=== PATIENT | female | born 1990 | race Caucasian/White ===

== ENCOUNTER 2021-08-25 17:23 | Emergency (ER) | payer OTHER, SELFPAY ==
--- NOTE | ~2021-08-25 | US_ITS ---
EXAMINATION: US ABDOMEN LIMITED CLINICAL INFORMATION: Gallbladder only as per ordering request. Concern for acute cholecystitis.. COMPARISON: None TECHNIQUE: Real-time imaging of the gallbladder only. FINDINGS: GALLBLADDER: There are multiple small gallstones lying dependently in the gallbladder. No gallbladder wall thickening or pericholecystic fluid. Positive ultrasound Escalera's sign. COMMON BILE DUCT: CBD is mildly dilated measuring 0.7 cm in diameter. US/US abdomen limited IMPRESSION: 1. Cholelithiasis. No acute change of gallbladder wall. Positive ultrasound Escalera's sign. 2. Mildly dilated CBD measuring 0.7 cm. HIDA scan and MRCP may be helpful for further assessment.
[2021-08-25 18:45] VITALS: BP 126/75; PULSE 73; RESP 16; TEMP 36.4; O2SAT 98; BMI 26.5
[2021-08-25 19:11] LABS: MANUAL DIFF FLAG NO
[2021-08-25 19:12] LABS: Basophils Percent Auto 0.5 % (0-2); Eosinophils Absolute Auto 0.1 X10*3/uL (0.0-0.4); Eosinophils Percent Auto 1.1 % (0-4); Hematocrit 38.5 % (37.0-47.0); Hemoglobin 12.6 g/dl (12.0-16.0); Imm Gran Abs Auto 0.02 X10*3/uL (0.00-0.03); Imm Gran Pct Auto 0.3 % (0.0-0.4); Lymphocytes Absolute Auto 1.5 X10*3/uL (1.2-4.9); Lymphocytes Percent Auto 23.2 % (20-40); Mean Corpuscular HGB Conc 32.7 g/dl (31.0-35.0); Mean Corpuscular Hemoglobin 28.5 pg (27.0-33.0); Mean Corpuscular Volume 87.1 fL (80.0-98.0); Mean Platelet Volume 9.7 fL (9.4-12.3); Monocytes Absolute Auto 0.4 X10*3/uL (0.1-1.2); Neutrophils Absolute Auto 4.5 x10*3/uL (2.0-8.3); Neutrophils Percent Auto 68.9 % (45-73); Platelet Count 234 X10*3/uL (160-400); Red Blood Count 4.42 X10*6/uL (4.20-5.50); Red Cell Distribution Width 14.2 % (11.0-16.0); White Blood Count 6.6 X10*3/uL (4.8-10.8)
[2021-08-25 19:14] LABS: Appearance Urine HAZY; Color Urine YELLOW; Glucose Urine UA NEG (NEG); Leukocyte Esterase Urine NEG (NEG); Nitrite Urine NEG (NEG); UACC Culture Trigger NO; Urine Blood NEG (NEG); Urine Ketones 40 MG/DL (NEG); Urine Protein 2+ MG/DL (NEG-TRACE)
[2021-08-25 19:16] LABS: UPreg QC Valid YES; Urine Pregnancy NEGATIVE (NEGATIVE)
[2021-08-25 19:25] LABS: Amorphous Sediment Urine 1+ /LPF; RBC Urine 0 /HPF (0); Squamous Epithelial Cell Urine TRACE /LPF; WBC Urine 0 /HPF (0-4)
[2021-08-25 19:26] LABS: Bacteria Urine TRACE /LPF
[2021-08-25 19:27] LABS: COVID-19 Test Negative (Negative); IDNOW Serial# 9DD0AD1C
[2021-08-25 19:34] LABS: Alanine Aminotransferase 527 U/L (0-31); Albumin Level 4.6 g/dL (3.5-5.0); Alkaline Phosphatase 104 U/L (39-117); Anion Gap 12 (12-20); Aspartate Amino Transferase 526 U/L (5-31); Bilirubin Direct 1.6 mg/dL (0.0-0.5); Bilirubin Total 2.3 mg/dL (0.0-1.0); Blood Urea Nitrogen 9 mg/dL (9-16); Calcium 9.7 mg/dL (8.4-10.2); Carbon Dioxide 29 mmol/L (22-29); Chloride 105 mmol/L (96-108); Estimated Glomerular Filt Rate > 60; Glucose Random 97 mg/dL (60-115); Lipase 17 U/L (8-78); Potassium 3.8 mmol/L (3.3-5.1); Sodium 142 mmol/L (135-145); Total Protein 7.9 g/dL (6.5-8.0)
--- NOTE | 2021-08-25 21:05 | ED_ITS ---
HPI - Abdominal Pain General Chief Complaint: Abdominal Pain Stated Complaint: abd pain Time Seen by Provider: 08/25/21 21:05 Source: patient Mode of arrival: ambulatory Limitations: no limitations History of Present Illness HPI narrative: Patient has no significant abdominal problems noticed pain in upper abdomen for last 2- 3 days has a with nausea and vomiting of pain got worse today got him worse after eating food pain radiates to the back localized epigastric and right upper quadrant area no fever no chills no urinary complaints no fever no chills Related Data Previous Rx's Medication Instructions Recorded ondansetron 4 mg disintegrating 4 mg PO Q6-8H PRN #7 tab 08/26/21 tablet oxycodone 5 mg tablet 5 mg PO Q8H PRN #14 tab 08/26/21 Allergies Allergy/AdvReac Type Severity Reaction Status Date / Time No Known Allergies Allergy Verified 08/25/21 18:50 Review of Systems Review of Systems Yes all other systems are reviewed and are negative Physical Exam Verdana 4l Vital Signs: Verdana 4d Verdana 4d Vital Signs: Verdana 4d Verdana 4Bd Last Vital Signs Verdana 4d Window/Distribution Clerk New 4d Window/Distribution Clerk New 4d Temp 97.5 F 08/25/21 18:45 Window/Distribution Clerk New 4d Pulse 73 08/25/21 18:45 Window/Distribution Clerk New 4d Resp 16 08/25/21 18:45 BP 126/75 08/25/21 18:45 Pulse Ox 98 08/25/21 18:45 BMI result Body Mass Index 26.5 Appearance: Alert. Oriented X3. No acute distress. Eyes: No pallor or icterus ENT: Pharynx normal. Oral Mucosa moist Neck: Normal inspection. Neck supple. CVS: Normal heart rate and rhythm. Pulses normal. Respiratory: No respiratory distress. Equal air entry bilateral, no wheezing/rales/rhonchi Abdomen: Soft tender in epigastric and right upper quadrant area no rebound tenderness or guarding Bowel sounds are present, no mass palpable, no CVA tenderness Skin: Skin warm and dry. Normal skin color. Normal skin turgor. Extremities: No lower extremity edema. No calf tenderness Neuro: Oriented X 3. MDM - Abdominal Pain Lab Data Attestation: I reviewed the patient's lab results. Result diagrams: 08/25/21 19:02 08/25/21 19:02 Labs: Lab Results 08/25/21 08/25/21 08/25/21 Range/Units 19:01 19:02 19:02 WBC 6.6 (4.8-10.8) X10*3/uL RBC 4.42 (4.20-5.50) X10*6/uL Hgb 12.6 (12.0-16.0) g/dl Hct 38.5 (37.0-47.0) % MCV 87.1 (80.0-98.0) fL MCH 28.5 (27.0-33.0) pg MCHC 32.7 (31.0-35.0) g/dl RDW 14.2 (11.0-16.0) % Plt Count 234 (160-400) X10*3/uL MPV 9.7 (9.4-12.3) fL Immature Gran % (Auto) 0.3 (0.0-0.4) % Neut % (Auto) 68.9 (45-73) % Lymph % (Auto) 23.2 (20-40) % [place] % (Auto) 6.0 (2-11) % Eos % (Auto) 1.1 (0-4) % Baso % (Auto) 0.5 (0-2) % Lymph # (Auto) 1.5 (1.2-4.9) X10*3/uL [place] # (Auto) 0.4 (0.1-1.2) X10*3/uL Eos # (Auto) 0.1 (0.0-0.4) X10*3/uL Baso # (Auto) 0.0 (0.0-0.2) X10*3/uL Abs Immat Gran (auto) 0.02 (0.00-0.03) X10*3/uL Absolute Neuts (auto) 4.5 (2.0-8.3) x10*3/uL Absolute Nucleated RBC 0.000 (0.0-0.012) X10*3/uL Nucleated RBC % (auto) 0.0 (0.0-0.2) /100WBC Sodium 142 (135-145) mmol/L Potassium 3.8 (3.3-5.1) mmol/L Chloride 105 (96-108) mmol/L Carbon Dioxide 29 (22-29) mmol/L Anion Gap 12 (12-20) BUN 9 (9-16) mg/dL Creatinine 0.65 (0.5-1.4) mg/dL Estim Creat Clear Calc 115.0 Estimated GFR > 60 Random Glucose 97 (60-115) mg/dL Calcium 9.7 (8.4-10.2) mg/dL Total Bilirubin 2.3 H (0.0-1.0) mg/dL Direct Bilirubin 1.6 H (0.0-0.5) mg/dL AST 526 H (5-31) U/L ALT 527 H (0-31) U/L Alkaline Phosphatase 104 (39-117) U/L Total Protein 7.9 (6.5-8.0) g/dL Albumin 4.6 (3.5-5.0) g/dL Lipase 17 (8-78) U/L Urine Color YELLOW Urine Appearance HAZY Urine pH 8.0 (5.0-8.0) Ur Specific [place] 1.010 (1.005-1.025) Urine Protein 2+ H (NEG-TRACE) MG/DL Urine Glucose (UA) NEG (NEG) MG/DL Urine Ketones 40 (NEG) MG/DL Urine Blood NEG (NEG) Urine Nitrite NEG (NEG) Ur Leukocyte Esterase NEG (NEG) Urine RBC 0 (0) /HPF Urine WBC 0 (0-4) /HPF Ur Squamous Epith Cells TRACE /LPF Amorphous Sediment 1+ /LPF Urine Bacteria TRACE /LPF Urine Test (NEGATIVE) COVID-19 (JUDITH) (Negative) COVID-19 Clin Com 08/25/21 08/25/21 Range/Units 19:02 19:02 WBC (4.8-10.8) X10*3/uL RBC (4.20-5.50) X10*6/uL Hgb (12.0-16.0) g/dl Hct (37.0-47.0) % MCV (80.0-98.0) fL MCH (27.0-33.0) pg MCHC (31.0-35.0) g/dl RDW (11.0-16.0) % Plt Count (160-400) X10*3/uL MPV (9.4-12.3) fL Immature Gran % (Auto) (0.0-0.4) % Neut % (Auto) (45-73) % Lymph % (Auto) (20-40) % [place] % (Auto) (2-11) % Eos % (Auto) (0-4) % Baso % (Auto) (0-2) % Lymph # (Auto) (1.2-4.9) X10*3/uL [place] # (Auto) (0.1-1.2) X10*3/uL Eos # (Auto) (0.0-0.4) X10*3/uL Baso # (Auto) (0.0-0.2) X10*3/uL Abs Immat Gran (auto) (0.00-0.03) X10*3/uL Absolute Neuts (auto) (2.0-8.3) x10*3/uL Absolute Nucleated RBC (0.0-0.012) X10*3/uL Nucleated RBC % (auto) (0.0-0.2) /100WBC Sodium (135-145) mmol/L Potassium (3.3-5.1) mmol/L Chloride (96-108) mmol/L Carbon Dioxide (22-29) mmol/L Anion Gap (12-20) BUN (9-16) mg/dL Creatinine (0.5-1.4) mg/dL Estim Creat Clear Calc Estimated GFR Random Glucose (60-115) mg/dL Calcium (8.4-10.2) mg/dL Total Bilirubin (0.0-1.0) mg/dL Direct Bilirubin (0.0-0.5) mg/dL AST (5-31) U/L ALT (0-31) U/L Alkaline Phosphatase (39-117) U/L Total Protein (6.5-8.0) g/dL Albumin (3.5-5.0) g/dL Lipase (8-78) U/L Urine Color Urine Appearance Urine pH (5.0-8.0) Ur Specific [place] (1.005-1.025) Urine Protein (NEG-TRACE) MG/DL Urine Glucose (UA) (NEG) MG/DL Urine Ketones (NEG) MG/DL Urine Blood (NEG) Urine Nitrite (NEG) Ur Leukocyte Esterase (NEG) Urine RBC (0) /HPF Urine WBC (0-4) /HPF Ur Squamous Epith Cells /LPF Amorphous Sediment /LPF Urine Bacteria /LPF Urine Test NEGATIVE (NEGATIVE) COVID-19 (JUDITH) Negative (Negative) COVID-19 Clin Com See Note Discharge Plan Discharge Clinical Impression: Gall bladder stones Patient Disposition: Left Against Medical Advice Instructions: Gallstones (ED) Additional Instructions: You have lots of gallstones which which need to be taken care of please see the surgeon as soon as possible Drink plenty of fluids avoid greasy food Prescriptions: New oxycodone 5 mg tablet 5 mg PO Q8H PRN (Reason: pain) Qty: 14 0RF ondansetron 4 mg tablet,disintegrating 4 mg PO Q6-8H PRN (Reason: nausea and vomiting) Qty: 7 0RF Referrals: Lemuel Bolton MD [Physician] - 3 days Stand Alone Forms: Against Medical Advice Interventions: ED Discharge Assessment Last Done: 08/26/21 00:28 Discharge Date/Time: 08/26/21 00:30 [facility] Past Medical History Medical History No known health problems Social History Social History Advance Directives: No Advance Directives Information Provided: No Patient : No
--- NOTE | 2021-08-25 22:29 | ED_ITS ---
HPI - Abdominal Pain General Chief Complaint: Abdominal Pain Stated Complaint: abd pain Time Seen by Provider: 08/25/21 21:05 Source: patient Mode of arrival: ambulatory Limitations: no limitations History of Present Illness HPI narrative: Patient no significant past medical history noticed pain in upper abdomen ep igastric area since yesterday night got better then again came back at 04:00 associated with nausea and vomiting vomited about 4 times no fever no chills no history of similar pain in the past no history of gallstones or pancreatitis in the past Related Data Previous Rx's Medication Instructions Recorded ondansetron 4 mg disintegrating 4 mg PO Q6-8H PRN #7 tab 08/26/21 tablet oxycodone 5 mg tablet 5 mg PO Q8H PRN #14 tab 08/26/21 Allergies Allergy/AdvReac Type Severity Reaction Status Date / Time No Known Allergies Allergy Verified 08/25/21 18:50 Review of Systems Review of Systems Yes all other systems are reviewed and are negative Physical Exam Verdana 4l Vital Signs: Verdana 4d Verdana 4d Vital Signs: Verdana 4d Verdana 4Bd Last Vital Signs Verdana 4d Punchboard Filling Machine Operator New 4d Punchboard Filling Machine Operator New 4d Temp 97.5 F 08/25/21 18:45 Punchboard Filling Machine Operator New 4d Pulse 73 08/25/21 18:45 Punchboard Filling Machine Operator New 4d Resp 16 08/25/21 18:45 BP 126/75 08/25/21 18:45 Pulse Ox 98 08/25/21 18:45 BMI result Body Mass Index 26.5 Appearance: Alert. Oriented X3. No acute distress. Eyes: PERRLA, No Nystagmus no icterus ENT: Pharynx normal. Oral Mucosa moist Neck: Normal inspection. Neck supple. CVS: Normal heart rate and rhythm. Pulses normal. Respiratory: No respiratory distress. Equal air entry bilateral, no wheezing/rales/rhonchi Abdomen: Soft , tenderness in epigastric and right upper quadrant area no rebound tenderness + guarding Bowel sounds are present, no mass palpable, no CVA tenderness Skin: Skin warm and dry. Normal skin color. Normal skin turgor. Extremities: No lower extremity edema. No calf tenderness Neuro: Oriented X 3. No motor deficit. No sensory deficit.No cerebellar signs , cranial nerves II-XII intact MDM - Abdominal Pain MDM Narrative Medical decision making narrative: . Patient withCholelithiasis with elevated LFTs no signs of cholecystitis CBD slightly dilated to 0.7 cm patient feeling much better now pain is almost gone no nausea taking p.o. fluids patient is refusing to stay in the hospital because she has kids at home with follow-up with surgeon tomorrow patient advised to see surgeon as soon as possible because her liver is getting affected patient signed against medical advice Lab Data Attestation: I reviewed the patient's lab results. Result diagrams: 08/25/21 19:02 08/25/21 19:02 Labs: Lab Results 08/25/21 08/25/21 08/25/21 Range/Units 19:01 19:02 19:02 WBC 6.6 (4.8-10.8) X10*3/uL RBC 4.42 (4.20-5.50) X10*6/uL Hgb 12.6 (12.0-16.0) g/dl Hct 38.5 (37.0-47.0) % MCV 87.1 (80.0-98.0) fL MCH 28.5 (27.0-33.0) pg MCHC 32.7 (31.0-35.0) g/dl RDW 14.2 (11.0-16.0) % Plt Count 234 (160-400) X10*3/uL MPV 9.7 (9.4-12.3) fL Immature Gran % (Auto) 0.3 (0.0-0.4) % Neut % (Auto) 68.9 (45-73) % Lymph % (Auto) 23.2 (20-40) % [place] % (Auto) 6.0 (2-11) % Eos % (Auto) 1.1 (0-4) % Baso % (Auto) 0.5 (0-2) % Lymph # (Auto) 1.5 (1.2-4.9) X10*3/uL [place] # (Auto) 0.4 (0.1-1.2) X10*3/uL Eos # (Auto) 0.1 (0.0-0.4) X10*3/uL Baso # (Auto) 0.0 (0.0-0.2) X10*3/uL Abs Immat Gran (auto) 0.02 (0.00-0.03) X10*3/uL Absolute Neuts (auto) 4.5 (2.0-8.3) x10*3/uL Absolute Nucleated RBC 0.000 (0.0-0.012) X10*3/uL Nucleated RBC % (auto) 0.0 (0.0-0.2) /100WBC Sodium 142 (135-145) mmol/L Potassium 3.8 (3.3-5.1) mmol/L Chloride 105 (96-108) mmol/L Carbon Dioxide 29 (22-29) mmol/L Anion Gap 12 (12-20) BUN 9 (9-16) mg/dL Creatinine 0.65 (0.5-1.4) mg/dL Estim Creat Clear Calc 115.0 Estimated GFR > 60 Random Glucose 97 (60-115) mg/dL Calcium 9.7 (8.4-10.2) mg/dL Total Bilirubin 2.3 H (0.0-1.0) mg/dL Direct Bilirubin 1.6 H (0.0-0.5) mg/dL AST 526 H (5-31) U/L ALT 527 H (0-31) U/L Alkaline Phosphatase 104 (39-117) U/L Total Protein 7.9 (6.5-8.0) g/dL Albumin 4.6 (3.5-5.0) g/dL Lipase 17 (8-78) U/L Urine Color YELLOW Urine Appearance HAZY Urine pH 8.0 (5.0-8.0) Ur Specific [place] 1.010 (1.005-1.025) Urine Protein 2+ H (NEG-TRACE) MG/DL Urine Glucose (UA) NEG (NEG) MG/DL Urine Ketones 40 (NEG) MG/DL Urine Blood NEG (NEG) Urine Nitrite NEG (NEG) Ur Leukocyte Esterase NEG (NEG) Urine RBC 0 (0) /HPF Urine WBC 0 (0-4) /HPF Ur Squamous Epith Cells TRACE /LPF Amorphous Sediment 1+ /LPF Urine Bacteria TRACE /LPF Urine Test (NEGATIVE) COVID-19 (JUDITH) (Negative) COVID-19 Clin Com 08/25/21 08/25/21 Range/Units 19:02 19:02 WBC (4.8-10.8) X10*3/uL RBC (4.20-5.50) X10*6/uL Hgb (12.0-16.0) g/dl Hct (37.0-47.0) % MCV (80.0-98.0) fL MCH (27.0-33.0) pg MCHC (31.0-35.0) g/dl RDW (11.0-16.0) % Plt Count (160-400) X10*3/uL MPV (9.4-12.3) fL Immature Gran % (Auto) (0.0-0.4) % Neut % (Auto) (45-73) % Lymph % (Auto) (20-40) % [place] % (Auto) (2-11) % Eos % (Auto) (0-4) % Baso % (Auto) (0-2) % Lymph # (Auto) (1.2-4.9) X10*3/uL [place] # (Auto) (0.1-1.2) X10*3/uL Eos # (Auto) (0.0-0.4) X10*3/uL Baso # (Auto) (0.0-0.2) X10*3/uL Abs Immat Gran (auto) (0.00-0.03) X10*3/uL Absolute Neuts (auto) (2.0-8.3) x10*3/uL Absolute Nucleated RBC (0.0-0.012) X10*3/uL Nucleated RBC % (auto) (0.0-0.2) /100WBC Sodium (135-145) mmol/L Potassium (3.3-5.1) mmol/L Chloride (96-108) mmol/L Carbon Dioxide (22-29) mmol/L Anion Gap (12-20) BUN (9-16) mg/dL Creatinine (0.5-1.4) mg/dL Estim Creat Clear Calc Estimated GFR Random Glucose (60-115) mg/dL Calcium (8.4-10.2) mg/dL Total Bilirubin (0.0-1.0) mg/dL Direct Bilirubin (0.0-0.5) mg/dL AST (5-31) U/L ALT (0-31) U/L Alkaline Phosphatase (39-117) U/L Total Protein (6.5-8.0) g/dL Albumin (3.5-5.0) g/dL Lipase (8-78) U/L Urine Color Urine Appearance Urine pH (5.0-8.0) Ur Specific [place] (1.005-1.025) Urine Protein (NEG-TRACE) MG/DL Urine Glucose (UA) (NEG) MG/DL Urine Ketones (NEG) MG/DL Urine Blood (NEG) Urine Nitrite (NEG) Ur Leukocyte Esterase (NEG) Urine RBC (0) /HPF Urine WBC (0-4) /HPF Ur Squamous Epith Cells /LPF Amorphous Sediment /LPF Urine Bacteria /LPF Urine Test NEGATIVE (NEGATIVE) COVID-19 (JUDITH) Negative (Negative) COVID-19 Clin Com See Note Discharge Plan Discharge Clinical Impression: Gall bladder stones, Biliary colic, Elevated LFTs Patient Disposition: Left Against Medical Advice Instructions: Gallstones (ED) Additional Instructions: You have lots of gallstones which which need to be taken care of please see the surgeon as soon as possible Drink plenty of fluids avoid greasy food Prescriptions: New oxycodone 5 mg tablet 5 mg PO Q8H PRN (Reason: pain) Qty: 14 0RF ondansetron 4 mg tablet,disintegrating 4 mg PO Q6-8H PRN (Reason: nausea and vomiting) Qty: 7 0RF Referrals: Lemuel Bolton MD [Physician] - 3 days Stand Alone Forms: Against Medical Advice Interventions: ED Discharge Assessment Last Done: 08/26/21 00:28 Discharge Date/Time: 08/26/21 00:30 [facility] Past Medical History Medical History No known health problems Social History Social History Advance Directives: No Advance Directives Information Provided: No Patient : No
[2021-08-25] MEDS: 0.9 % Sodium Chloride 1,000 ML 999 ML IV (22:31)
[2021-08-25] MEDS: Morphine Sulfate 4 MG/ML CARTRIDGE 2 MG IVPUSH (22:32)
[2021-08-25] MEDS: ondansetron HCL 4 MG/2 ML VIAL IVPUSH (22:32)
--- NOTE | 2021-08-26 00:26 | PC.NURSE ---
I assumed care of this pt upon her arrival. She states she has had abdominal pain and bloating x 2 days with nausea and vomiting. She denies CP. No SOB. No fevers or chills. Gait steady. BEE x 4. IV access and labs were obtained, IVF's were administered as well as ordered pain meds and anti-emetics. pt hd U/S and the decision was made to admit to the hospital, hwoever the pt stated she was unable to be admitted and signed out AMA. prior to signing out she had all questions answered, she was pain free at time of D/c. We reviewed all DC instructions and proper uses and indications for PO Zofran and oxycodone. She verbalized an understanding.
== END 2021-08-26 00:30 | disposition left against medical advice (07) ==
PROVIDERS: Emergency Provider Internal Medicine
DX: K80.50 Calculus of bile duct without cholangitis or cholecystitis without obstruction (principal); Z20.822 Contact with and (suspected) exposure to COVID-19; R79.89 Other specified abnormal findings of blood chemistry
CPT/HCPCS: 36415; 76705; 80048; 80076; 81001; 81025; 83690; 85025; 87635; 96361; 96374; 96375; 96376; 99283; 99284; J2270; J2405

== ENCOUNTER 2021-09-03 14:52 | Outpatient (REF) | payer OTHER, SELFPAY ==
[2021-09-03 16:44] LABS: Alanine Aminotransferase 175 U/L (0-31); Albumin Level 4.5 g/dL (3.5-5.0); Alkaline Phosphatase 93 U/L (39-117); Aspartate Amino Transferase 71 U/L (5-31); Bilirubin Direct 0.2 mg/dL (0.0-0.5); Bilirubin Total 0.5 mg/dL (0.0-1.0); Total Protein 7.6 g/dL (6.5-8.0)
== END 2021-09-03 14:53 | disposition home or self-care (01) ==
LOC: HO.LAB 14:52
PROVIDERS: Visit Provider Surgery
DX: K80.20 Calculus of gallbladder without cholecystitis without obstruction (principal)
CPT/HCPCS: 36415; 80076; 99202

== ENCOUNTER 2021-10-28 16:06 | Outpatient (REF) | payer OTHER, SELFPAY | END 2021-10-28 16:07 | disposition home or self-care (01) | LOC: HO.US 16:06 | PROVIDERS: Visit Provider Surgery | DX: Z13.89 Encounter for screening for other disorder (principal) ==

== ENCOUNTER 2021-10-29 13:35 | Outpatient (REF) | payer OTHER, SELFPAY ==
--- NOTE | ~2021-10-29 | CT_ITS ---
EXAMINATION: CT ABDOMEN AND PELVIS WITH CONTRAST CLINICAL INFORMATION: Calculus of gallbladder without cholecystitis. COMPARISON: None. TECHNIQUE: Multidetector volumetric images were obtained from the superior aspect of the liver through the pubic symphysis following administration 85 mL of Omnipaque 350 intravenous and 500 mL oral Redicat contrast. Sagittal and coronal reformatted images were obtained on the technologist's workstation. Oral contrast: No This CT examination was performed using dose optimization techniques as appropriate, variously including the following: *Automated exposure control *Adjustment of mA and/or kV according to patient size (this includes techniques or standardized protocols for targeted exams where dose is matched to indication/reason for exam; i.e. extremities or head) *Use of iterative reconstruction technique DLP: 359 mGy-cm FINDINGS: LUNG BASES: The lung bases are clear. LIVER, GALLBLADDER, AND BILIARY TREE: The liver is normal in size, shape, and attenuation. No focal hepatic lesion or biliary ductal dilatation is present. The gallbladder is contracted. PANCREAS: Unremarkable. SPLEEN: Unremarkable. ADRENAL GLANDS: Unremarkable. KIDNEYS AND URETERS: The kidneys are normal in size, shape, and attenuation. There are multiple small radiopaque calcifications/calculi in both kidneys without caliectasis. There is a nonenhancing 7 mm cyst midpole left kidney. BLADDER: Unremarkable. GASTROINTESTINAL TRACT: There is scattered stool and gas seen throughout the colon without significant distention. ABDOMINAL WALL: There is a small lumbar hernia containing fat. LYMPH NODES: Normal. VASCULAR: Unremarkable. PELVIC VISCERA: There is a 1.8 cm cyst left ovary with expected wall enhancement. The uterus is anteverted and appears unremarkable. There is no free fluid. OSSEOUS STRUCTURES: Unremarkable. CT/CT abdomen pelvis w con IMPRESSION: Contracted gallbladder with no radiopaque calculi seen to corroborate any findings on recent ultrasound. [id number] constipation without obstruction. Small left ovarian cyst. Fleischner guidelines were followed.
[2021-10-29] MEDS: iohexoL 350 MG/ML 100 ML INFUS..BTL IV (15:50)
[2021-10-29] MEDS: Barium Sulfate Oral (Vanilla) 450 ML ORAL.SUSP 900 ML PO (15:51)
== END 2021-10-29 13:36 | disposition home or self-care (01) ==
LOC: HO.CT 13:35
PROVIDERS: Visit Provider Surgery
DX: K80.20 Calculus of gallbladder without cholecystitis without obstruction (principal)
CPT/HCPCS: 74177; Q9967

== ENCOUNTER → 2021-12-03 15:41 | Outpatient (BNVA) | payer OTHER, SELFPAY | PROVIDERS: Visit Provider Surgery | DX: K80.20 Calculus of gallbladder without cholecystitis without obstruction (principal) | CPT/HCPCS: 99212 ==

== ENCOUNTER 2022-05-11 14:57 | Emergency (ER) | payer OTHER, SELFPAY ==
[2022-05-11 16:30] VITALS: BP 122/83; PULSE 77; RESP 18; TEMP 35.9; O2SAT 97; BMI 24.0
[2022-05-11 16:53] LABS: MANUAL DIFF FLAG NO
[2022-05-11 16:56] LABS: Basophils Percent Auto 0.4 % (0-2); Eosinophils Absolute Auto 0.1 X10*3/uL (0.0-0.4); Eosinophils Percent Auto 1.5 % (0-4); Hematocrit 39.8 % (37.0-47.0); Imm Gran Abs Auto 0.02 X10*3/uL (0.00-0.03); Imm Gran Pct Auto 0.3 % (0.0-0.4); Lymphocytes Absolute Auto 1.5 X10*3/uL (1.2-4.9); Lymphocytes Percent Auto 21.6 % (20-40); Mean Corpuscular HGB Conc 32.7 g/dl (31.0-35.0); Mean Corpuscular Hemoglobin 27.9 pg (27.0-33.0); Mean Corpuscular Volume 85.4 fL (80.0-98.0); Mean Platelet Volume 9.5 fL (9.4-12.3); Monocytes Absolute Auto 0.4 X10*3/uL (0.1-1.2); Monocytes Percent Auto 6.1 % (2-11); Neutrophils Absolute Auto 4.8 x10*3/uL (2.0-8.3); Neutrophils Percent Auto 70.1 % (45-73); Platelet Count 237 X10*3/uL (160-400); Red Blood Count 4.66 X10*6/uL (4.20-5.50); Red Cell Distribution Width 15.1 % (11.0-16.0); White Blood Count 6.9 X10*3/uL (4.8-10.8)
[2022-05-11 17:12] LABS: Albumin Level 4.9 g/dL (3.5-5.0); Anion Gap 18 (12-20); Bilirubin Direct 1.4 mg/dL (0.0-0.5); Bilirubin Total 2.2 mg/dL (0.0-1.0); Blood Urea Nitrogen 13 mg/dL (9-16); Calcium 9.6 mg/dL (8.4-10.2); Carbon Dioxide 26 mmol/L (22-29); Chloride 102 mmol/L (96-108); Creatinine Clr Calc Pharmacy 99.6; Estimated Glomerular Filt Rate > 60; Glucose Random 94 mg/dL (60-115); Lipase 18 U/L (8-78); Sodium 142 mmol/L (135-145); Total Protein 8.2 g/dL (6.5-8.0)
[2022-05-11 17:26] LABS: Alanine Aminotransferase 461 U/L (0-31); Alkaline Phosphatase 105 U/L (39-117); Aspartate Amino Transferase 271 U/L (5-31)
== END 2022-05-11 23:16 | disposition left against medical advice (07) ==
LOC: HO.ED 23:14
PROVIDERS: Emergency Provider Emergency Medicine
DX: K80.20 Calculus of gallbladder without cholecystitis without obstruction (principal); R10.11 Right upper quadrant pain; R11.2 Nausea with vomiting, unspecified
CPT/HCPCS: 36415; 80048; 80076; 83690; 85025; 99281; 99282; 99283

== ENCOUNTER → 2022-05-18 14:45 | Outpatient (BNVA) | payer OTHER, SELFPAY | PROVIDERS: Visit Provider Surgery | DX: K80.20 Calculus of gallbladder without cholecystitis without obstruction (principal) | CPT/HCPCS: 99212 ==

== ENCOUNTER 2022-09-11 07:52 | Day surgery (SDC) | payer OTHER, SELFPAY ==
[2022-08-04 11:40] VITALS: BMI 26.9
[2022-09-11] VITALS (18 sets, daily range): BP systolic 100–122; BP diastolic 56–77; PULSE 63–79; RESP 16–18; TEMP 36.7–37.2; O2SAT 96–99
[2022-09-11 08:44] LABS: UPreg QC Valid YES; Urine Pregnancy NEGATIVE (NEGATIVE)
--- NOTE | 2022-09-11 09:13 | HO.ANESPROP2 ---
HPI - Anesthesia Eval Consult details Narrative: 32yr old female for lap rupert PMFSH Active Problems Active Problems: All Active Problems (Updated 06/24/22 @ 10:50 by Erin Higginbotham RN) Gallstones (Acute) Past Medical History Medical History (Updated 06/24/22 @ 10:50 by Erin Higginbotham RN) Gallstones Family History Family history of problems with anesthesia: No Surgical History History of Problems with Anesthesia: No Social History Social History Advance Directives: No Advance Directives Information Provided: Yes Meds Allergies Allergy/AdvReac Type Severity Reaction Status Date / Time No Known Allergies Allergy Verified 05/18/22 14:51 Exam Exam Date and Time: September 11, 2022 0913 Height,Weight and Vital Signs: Height 5 ft 3 in Weight 68.946 kg Pertinent Lab Results Pertinent Lab Results: Laboratory Tests 09/11/22 08:30 Urine Test NEGATIVE Airway Mallampati Class: II TM Dist: >3cm Neck ROM: Full Heart: rrr Lungs: cta Assessment and Plan Assessment Anesthesia Assessment: Anesthesia Plan Discussed and Chart Reviewed Final Anesthetic Review Family History of Problems with Anesthesia: No History of Problems with Anesthesia: No NPO: Yes ASA Class: II Final Preanesthetic Review: No Changes in Pt Med Stat, Meds/Allgs Chart Reviewed, Consent Obtained/Reviewed and Anes Risks/Benef Reviewed Patient Risk: Low Procedure Risk: Intermediate Anesthetic Plan Anesthetic Plan: GA Disposition: Standard PACU
--- NOTE | 2022-09-11 09:28 | MHC.SHP ---
Pre-Procedural Eval Section A Date of Service: 09/11/22 Section B Chief Complaint: Calculus of gallbladder without cholecystitis Details of Present Illness: has known gallstones, with symptoms of right upper quadrant pain periodically Relevant Family History (Specify if Yes): No Relevant Social History: None Present Medications: see Short Stay Collaborative assessment Medical History: No relevant PMH Allergies: Allergies Allergy/AdvReac Type Severity Reaction Status Date / Time No Known Allergies Allergy Verified 05/18/22 14:51 Review of Systems Sugical H&P ROS: Negative: Constitution, Cardiovascular, Respiratory, Neurological, Psychiatric, Hem-Onc, Allergic/Immunologic, Gastrointestinal, Genitourinary, Musculoskeletal, Integumentary, Endocrine and Eyes/Ears/Nose/Throat Exam Surgical H&P Exam: Normal: HEENT, Normal: Heart, Normal: Lungs, Normal: Extremities, Normal: Abdomen, Normal: Skin and Normal: Neurological Plan Diagnosis/Plan: Unchanged I have reviewed the history and physical and performed a pertinent physical examination on my patient. No changes have occurred unless specified. Time Spent With Patient Time: Total time managing care of this patient today ____ minutes.
--- NOTE | 2022-09-11 11:27 | W.PM.OPN ---
Operative Note Operative Note Date of Service: 09/11/22 Narrative: Preop diagnosis: symptomatic gallstones Postop diagnosis: The same Procedure: For scopic cholecystectomy Surgeon: Lemuel Bolton MD market research assistant: DAMIÁN Denson The patient is a 32-year-old female with gallstones, with periodic right upper quadrant pain. She wanted to proceed with cholecystectomy. She understood the technique of the laparoscopic cholecystectomy and was aware of the risks, benefits, and alternatives She was brought to the operating room and placed supine under general anesthesia via endotracheal tube. The abdomen is prepped and draped in the usual sterile fashion. A surgical time-out was done. The patient received cefazolin 2 g IV preoperatively I made a short incision on the supraumbilical margin using blade 15. This carried down through the full-thickness of the skin subcutaneous fat down to the fascia. The fascia was incised. The peritoneum was entered and through this incision a Chente port was introduced. Pneumoperitoneum was introduced due to a pressure of 15 mm hg. From here on the rest of procedure was done under vision with the laparoscope. With laparoscopic visualization using a 10 mm laparoscopic, I proceeded to place another 5/12 mm port in the epigastric area below the subcostal margin. Two 5 mm introduced through small incisions below the subcostal margin along the anterior axillary line and the midclavicular line. Graspers were placed through these working ports. The patient was placed in head-up and [id number] position. The gallbladder was seen and this was supple and inflamed. I applied a grasper at the fundus and this was used to retract the gallbladder cephalad. Another grasper was applied towards the pouch of the gallbladder and this was used to retract the gallbladder laterally. At this point therefore the gallbladder was being retracted in a cephalad and lateral fashion to put the area of the cyst duct on stretch. There was a lot of fibrillar tissue surrounding the necks of had to do a lot of careful dissection using the [place] dissector were to clear this. Eventually is able to see the cystic duct. I continued to circumferentially dissect the cystic duct. Once this was done, we achieved a critical view of the fat a cystic triangle. We could see a cystic artery parallel to this. However, we could also see a large vessel which appeared to be the hepatic vessel which was arching and almost abutting the area of the hilum. We therefore had to pay good attention to this so as not to involved with his with the dissection. I proceeded to then apply clips on the cystic duct with two clips applied distally the cystic duct was transected between clips using Endo scissors. I had to carefully do a lot of blunt dissection to separate this large vessel that was earlier seen away from the rest of the bladder. I had to apply clips on fibrous areas to make sure that there was no bleeding as well. Eventually I was able to clearly define the cystic artery and this was clipped. This was divided between clips and the scissors. The continued to do careful dissection of the rest of the hilum. I had to proceed slowly because of the adjacent large vessel. Eventually, with careful in fine dissection I was able to completely separate the wall of the gallbladder away from the rest of this area so I was able to clearly visualize the rest of the hilum. I divided the hilum using the electrocautery spatula. I continued to then dissect to make an incision on the peritoneum the gallbladder and to define a plane of dissection using a combination of blunt dissection with the tip of the spatula as well as electrocautery to develop this plane of dissection all the way to the fundus. We proceeded with this plan of dissection until the entire gallbladder was completely from the liver bed. The gallbladder was retrieved through an endobag through the umbilical incision. I reinserted all ports and re-insufflated. I observed the subhepatic space. There is no evidence of any bleeding. There was not signs of any bile leak I observed or quadrant quadrants and there was no other pathology or any bowel injury seen. Once hemostasis was confirmed, I proceeded to then desufflate the port sites. I removed all ports under vision with the laparoscope . The umbilical port was removed last. I closed the fascia of the umbilical incision with a [id number] Dexon 0 stitch. Skin closure was achieved on all incisions using Dexon 4-0 subcuticular running sutures. Steri-Strips and dressings were applied. All incisions were infiltrated with Marcaine 0.5% for postop analgesia. The procedure was then completed. The patient tolerated the procedurewell. There were no immediate complications. Initial and final counts of sponges and instruments were correct. Estimated blood loss was about 75 cc . The patient was extubated without difficulty and transferred to the recovery room with stable vital signs.
[2022-09-11] MEDS: fentaNYL citrate/PF 100 MCG/2 ML VIAL 25 MCG IVPUSH ×4 (12:01→12:50)
[2022-09-11] MEDS: oxyCODONE HCl Immed Release 5 MG TABLET PO (12:01)
[2022-09-11] MEDS: ondansetron HCL 4 MG/2 ML VIAL IVPUSH (12:01)
== END 2022-09-11 14:45 | disposition home or self-care (01) ==
PROVIDERS: Anesthesiology; Visit Provider Surgery
PROC: 0FT44ZZ Resection of Gallbladder, Percutaneous Endoscopic Approach (ICD-10-PCS; CPT 47562; principal; 2022-09-11 09:50)
DX: K80.20 Calculus of gallbladder without cholecystitis without obstruction (principal); K80.10 Calculus of gallbladder with chronic cholecystitis without obstruction; Z79.899 Other long term (current) drug therapy
CPT/HCPCS: 47562; 81025; 88304; J0131; J0690; J1100; J1885; J2405; J2550; J2795; J3010

== ENCOUNTER → 2022-09-24 09:55 | Outpatient (BNVA) | payer OTHER, SELFPAY | PROVIDERS: Visit Provider Surgery | DX: Z87.19 Personal history of other diseases of the digestive system (principal) | CPT/HCPCS: 99212 ==